=== PATIENT | female | born 1965 | race Asian ===

== ENCOUNTER 2016-11-26 10:29 | Emergency (ER) | payer OTHER ==
[~2016-11-26] VITALS: Ht 162.6 cm; Wt 135.2 kg
[2016-11-26 11:09] LABS: PLATELET COUNT 254 K/uL (152-353)
[2016-11-26] MEDS ORDERED: PENICILLN VK500 MG OR (11:54)
[2016-11-26 12:10] VITALS: BP 162/88; TEMP 98.4
== END 2016-11-26 12:10 | disposition home or self-care (01) ==
LOC: ED 10:29
DX: J02.0 Streptococcal pharyngitis (principal)
CPT/HCPCS: 85027; 87804; 87880; 96372; 99283; J0696

== ENCOUNTER 2018-06-01 17:46 | Outpatient (CLI) | payer OTHER ==
[~2018-06-01 17:46] MED LIST: PENICILLN VK500 MG OR
== END 2018-06-01 20:12 | disposition home or self-care (01) ==
LOC: LABW 17:46
DX: B35.1 Tinea unguium (principal)
CPT/HCPCS: 36415; 84450; 84460

== ENCOUNTER 2018-07-14 17:39 | Outpatient (CLI) | payer OTHER ==
[2018-07-14 18:30] LABS: PLATELET COUNT 272 K/uL (152-353)
[2018-07-14 18:41] LABS: POTASSIUM 3.6 mmol/L (3.6-5.2)
== END 2018-07-14 23:25 | disposition home or self-care (01) ==
LOC: LABW 17:39
PROVIDERS: Internal Medicine Nephrology
DX: E11.65 Type 2 diabetes mellitus with hyperglycemia (principal); E66.9 Obesity, unspecified; I13.11 Hypertensive heart and chronic kidney disease without heart failure, with stage 5 chronic kidney disease, or end stage renal disease; R82.99 Other abnormal findings in urine
CPT/HCPCS: 36415; 80053; 81000; 85027; 87077; 87086; 87088; 87186

== ENCOUNTER 2018-07-28 16:19 | Outpatient (CLI) | payer OTHER ==
[2018-07-28 17:07] LABS: POTASSIUM 4.1 mmol/L (3.6-5.2)
== END 2018-07-28 23:35 | disposition home or self-care (01) ==
LOC: LABW 16:19
PROVIDERS: Internal Medicine Nephrology
DX: N18.4 Chronic kidney disease, stage 4 (severe) (principal)
CPT/HCPCS: 36415; 80053; 80061; 82306; 82570; 83516; 83970; 84100; 84155; 84165; 86039; 86160; 86255; 86317; 86706; 86803

== ENCOUNTER 2018-09-23 13:18 | Outpatient (CLI) | payer OTHER ==
[2018-09-23 13:49] LABS: POTASSIUM 4.4 mmol/L (3.6-5.2)
[2018-09-23] MEDS ORDERED: HYDR25TA60 PO (16:30)
[2018-09-23] MEDS ORDERED: GABA400C2 PO (16:30)
[2018-09-23] MEDS ORDERED: CARV6.25 PO (16:31)
[2018-09-23] MEDS ORDERED: PRAVACHOL20 MG PO (16:31)
[2018-09-23] MEDS ORDERED: KLOR-CON M2020 MEQ PO (16:31)
[2018-09-23] MEDS ORDERED: LIPITOR20 MG PO (16:32)
[2018-09-23] MEDS ORDERED: FURO40TA93 PO (16:33)
[2018-09-23] MEDS ORDERED: GLIP10TA55 PO (16:33)
[2018-09-23] MEDS ORDERED: AMLO2.5T PO (16:33)
[2018-09-23] MEDS ORDERED: CITALOPRAM40 M1 PO (16:34)
[2018-09-23] MEDS ORDERED: ZESTRIL40 MG PO (16:34)
[2018-09-23] MEDS ORDERED: EC-81 ASPIRIN81 MG PO (16:35)
== END 2018-09-23 22:27 | disposition home or self-care (01) ==
LOC: LABW 13:18
PROVIDERS: Internal Medicine Nephrology
DX: N18.4 Chronic kidney disease, stage 4 (severe) (principal); E78.2 Mixed hyperlipidemia; E55.9 Vitamin D deficiency, unspecified
CPT/HCPCS: 36415; 80053; 80061; 82306; 82550; 83735; 86039

== ENCOUNTER 2018-09-23 16:10 | Emergency (ER) | payer OTHER ==
[~2018-09-23] VITALS: Ht 162.6 cm; Wt 131.1 kg
[2018-09-23] MEDS ORDERED: HYDR25TA60 PO (16:30)
[2018-09-23] MEDS ORDERED: GABA400C2 PO (16:30)
[2018-09-23] MEDS ORDERED: CARV6.25 PO (16:31)
[2018-09-23] MEDS ORDERED: PRAVACHOL20 MG PO (16:31)
[2018-09-23] MEDS ORDERED: KLOR-CON M2020 MEQ PO (16:31)
[2018-09-23] MEDS ORDERED: LIPITOR20 MG PO (16:32)
[2018-09-23] MEDS ORDERED: FURO40TA93 PO (16:33)
[2018-09-23] MEDS ORDERED: AMLO2.5T PO (16:33)
[2018-09-23] MEDS ORDERED: GLIP10TA55 PO (16:33)
[2018-09-23] MEDS ORDERED: ZESTRIL40 MG PO (16:34)
[2018-09-23] MEDS ORDERED: CITALOPRAM40 M1 PO (16:34)
[2018-09-23] MEDS ORDERED: EC-81 ASPIRIN81 MG PO (16:35)
[2018-09-23 17:05] LABS: PLATELET COUNT 251 K/uL (152-353)
[2018-09-23 17:15] LABS: POTASSIUM 3.9 mmol/L (3.6-5.2)
[2018-09-23 21:20] VITALS: BP 133/87; TEMP 97.3
== END 2018-09-23 21:22 | disposition home or self-care (01) ==
LOC: ED 16:10
PROVIDERS: Family Medicine
DX: E11.65 Type 2 diabetes mellitus with hyperglycemia (principal); N18.9 Chronic kidney disease, unspecified
CPT/HCPCS: 36415; 80053; 81000; 85027; 96360; 96372; 96375; 99284; J1815

== ENCOUNTER 2018-09-24 15:45 | Outpatient (CLI) | payer OTHER ==
[~2018-09-24 15:45] MED LIST changes: +AMLO2.5T PO; +CARV6.25 PO; +CITALOPRAM40 M1 PO; +EC-81 ASPIRIN81 MG PO; +FURO40TA93 PO; +GABA400C2 PO; +GLIP10TA55 PO; +HYDR25TA60 PO; +KLOR-CON M2020 MEQ PO; +LIPITOR20 MG PO; +PRAVACHOL20 MG PO; +ZESTRIL40 MG PO
== END 2018-09-24 19:38 | disposition home or self-care (01) ==
LOC: LABW 15:45
DX: N18.4 Chronic kidney disease, stage 4 (severe) (principal)
CPT/HCPCS: 82570; 84156

== ENCOUNTER 2018-11-25 13:45 | Outpatient (CLI) | payer OTHER ==
[2018-11-25 14:02] LABS: PLATELET COUNT 293 K/uL (152-353)
[2018-11-25 14:10] LABS: POTASSIUM 4.7 mmol/L (3.6-5.2)
== END 2018-11-25 21:13 | disposition home or self-care (01) ==
LOC: LABW 13:45
PROVIDERS: Internal Medicine Nephrology
DX: N18.4 Chronic kidney disease, stage 4 (severe) (principal); E78.2 Mixed hyperlipidemia; E11.65 Type 2 diabetes mellitus with hyperglycemia
CPT/HCPCS: 36415; 80053; 80061; 82306; 82550; 85027

== ENCOUNTER 2019-01-26 11:41 | Outpatient (CLI) | payer OTHER ==
[2019-01-26 13:04] LABS: POTASSIUM 4.8 mmol/L (3.6-5.2)
== END 2019-01-26 20:32 | disposition home or self-care (01) ==
LOC: LABW 11:41
PROVIDERS: Internal Medicine Nephrology
DX: N18.4 Chronic kidney disease, stage 4 (severe) (principal); E78.2 Mixed hyperlipidemia
CPT/HCPCS: 36415; 80053; 80061; 82550

== ENCOUNTER → 2019-02-11 01:43 | Outpatient (CLI) | payer OTHER | END | disposition home or self-care (01) | LOC: AMB 01:43 | DX: R41.82 Altered mental status, unspecified (principal); E16.2 Hypoglycemia, unspecified; R53.83 Other fatigue ==

== ENCOUNTER 2019-02-11 13:45 | Outpatient (CLI) | payer OTHER | END 2019-02-11 13:52 | disposition short-term general hospital (02) | LOC: AMB 13:45 | DX: E16.2 Hypoglycemia, unspecified (principal) | CPT/HCPCS: A0425; A0427 ==

== ENCOUNTER 2019-02-11 13:58 | Emergency (ER) | payer OTHER ==
[~2019-02-11] VITALS: Ht 162.6 cm; Wt 138.8 kg
[2019-02-11 13:59] VITALS: TEMP 97.5
[2019-02-11 14:49] LABS: PLATELET COUNT 295 K/uL (152-353)
[2019-02-11 15:16] LABS: POTASSIUM 4.1 mmol/L (3.6-5.2)
[2019-02-11 18:22] VITALS: BP 165/91
== END 2019-02-11 18:25 | disposition home or self-care (01) ==
LOC: ED 13:58
PROVIDERS: Emergency Medicine
DX: E11.649 Type 2 diabetes mellitus with hypoglycemia without coma (principal)
CPT/HCPCS: 36415; 80053; 82962; 85027; 99283; J7060

== ENCOUNTER 2019-04-10 12:40 | Outpatient (CLI) | payer OTHER ==
[2019-04-10 13:05] LABS: PLATELET COUNT 306 K/uL (152-353)
[2019-04-10 13:16] LABS: POTASSIUM 4.3 mmol/L (3.6-5.2)
== END 2019-04-10 21:42 | disposition home or self-care (01) ==
LOC: LABW 12:40
PROVIDERS: Internal Medicine Nephrology
DX: N18.4 Chronic kidney disease, stage 4 (severe) (principal); E11.29 Type 2 diabetes mellitus with other diabetic kidney complication; E78.2 Mixed hyperlipidemia
CPT/HCPCS: 36415; 80048; 82306; 82570; 83036; 83970; 84100; 84155; 85027

== ENCOUNTER 2019-06-15 15:52 | Outpatient (CLI) | payer OTHER ==
[2019-06-15 16:14] LABS: PLATELET COUNT 253 K/uL (152-353)
[2019-06-15 16:17] LABS: POTASSIUM 4.6 mmol/L (3.6-5.2)
== END 2019-06-15 20:41 | disposition home or self-care (01) ==
LOC: LABW 15:52
PROVIDERS: Internal Medicine Nephrology
DX: N18.5 Chronic kidney disease, stage 5 (principal); D64.9 Anemia, unspecified; D55.9 Anemia due to enzyme disorder, unspecified; N25.81 Secondary hyperparathyroidism of renal origin
CPT/HCPCS: 36415; 80048; 82040; 82306; 83970; 84100; 85027

== ENCOUNTER 2019-07-14 13:01 | Outpatient (CLI) | payer OTHER ==
[2019-07-14 13:23] LABS: PLATELET COUNT 251 K/uL (152-353)
[2019-07-14 13:26] LABS: POTASSIUM 4.3 mmol/L (3.6-5.2)
== END 2019-07-14 20:19 | disposition home or self-care (01) ==
LOC: LABW 13:01
PROVIDERS: Internal Medicine Nephrology
DX: N18.5 Chronic kidney disease, stage 5 (principal); D63.1 Anemia in chronic kidney disease
CPT/HCPCS: 36415; 80048; 82040; 84100; 85027

== ENCOUNTER 2019-09-21 15:02 | Outpatient (CLI) | payer OTHER ==
[2019-09-21 15:36] LABS: PLATELET COUNT 232 K/uL (152-353)
== END 2019-09-21 21:11 | disposition home or self-care (01) ==
LOC: LABW 15:02
PROVIDERS: Internal Medicine Nephrology
DX: N18.5 Chronic kidney disease, stage 5 (principal); D63.1 Anemia in chronic kidney disease
CPT/HCPCS: 36415; 80048; 82040; 84100; 85027

== ENCOUNTER → 2019-09-30 20:38 | Outpatient (CLI) | payer OTHER ==
[~2019-09-30 20:38] MED LIST changes: +DOCU100C10 PO; +GENERLAC10 GM/15 M PO; +VITAMIN D50000 UNIT PO
== END | disposition home or self-care (01) ==
LOC: AMB 20:38
DX: E16.2 Hypoglycemia, unspecified (principal)

== ENCOUNTER 2019-10-02 09:55 | Outpatient (CLI) | payer OTHER ==
[~2019-10-02 09:55] MED LIST changes: -DOCU100C10 PO; -GENERLAC10 GM/15 M PO; -VITAMIN D50000 UNIT PO
== END 2019-10-02 10:00 | disposition short-term general hospital (02) ==
LOC: AMB 09:55
DX: E16.2 Hypoglycemia, unspecified (principal)
CPT/HCPCS: A0425; A0427

== ENCOUNTER 2019-10-02 10:02 | Emergency (ER) | payer OTHER ==
[~2019-10-02] VITALS: Ht 162.6 cm; Wt 138.8 kg
[2019-10-02 10:42] LABS: PLATELET COUNT 295 K/uL (152-353)
[2019-10-02 11:08] LABS: POTASSIUM 4.8 mmol/L (3.6-5.2)
[2019-10-02 19:00] VITALS: BP 209/92; TEMP 98.2
== END 2019-10-02 19:00 | disposition short-term general hospital (02) ==
LOC: ED 10:02
PROVIDERS: Family Medicine
PROC: 0T9B70Z Drainage of Bladder with Drainage Device, Via Natural or Artificial Opening (ICD-10-PCS; principal; 2019-10-02)
DX: E11.649 Type 2 diabetes mellitus with hypoglycemia without coma (principal); N18.6 End stage renal disease; R94.31 Abnormal electrocardiogram [ECG] [EKG]
CPT/HCPCS: 36415; 36600; 51702; 80053; 82140; 82550; 82553; 82805; 82962; 83605; 83735; 83880; 84484; 85027; 87040; 93005; 96372; 96374; 96375; 99284; J0360; J1610; J1940; J7060

== ENCOUNTER 2019-10-18 22:55 | Outpatient (CLI) | payer OTHER ==
[2019-10-18] MEDS ORDERED: VITAMIN D50000 UNIT PO (23:22)
[2019-10-18] MEDS ORDERED: GENERLAC10 GM/15 M PO (23:25)
[2019-10-18] MEDS ORDERED: DOCU100C10 PO (23:26)
== END 2019-10-18 23:00 | disposition short-term general hospital (02) ==
LOC: AMB 22:55
DX: E11.649 Type 2 diabetes mellitus with hypoglycemia without coma (principal)
CPT/HCPCS: A0425; A0427

== ENCOUNTER 2019-10-18 23:11 | Emergency (ER) | payer OTHER ==
[~2019-10-18] VITALS: Ht 162.6 cm; Wt 138.8 kg
[2019-10-18] MEDS ORDERED: VITAMIN D50000 UNIT PO (23:22)
[2019-10-18] MEDS ORDERED: GENERLAC10 GM/15 M PO (23:25)
[2019-10-18 23:26] LABS: PLATELET COUNT 248 K/uL (152-353)
[2019-10-18] MEDS ORDERED: DOCU100C10 PO (23:26)
[2019-10-18 23:55] LABS: POTASSIUM 4.7 mmol/L (3.6-5.2)
[2019-10-19 02:27] VITALS: BP 124/52; TEMP 97.7
== END 2019-10-19 02:28 | disposition home or self-care (01) ==
LOC: ED 23:11
PROVIDERS: Hospitalist
DX: E11.649 Type 2 diabetes mellitus with hypoglycemia without coma (principal); N18.6 End stage renal disease; Z99.2 Dependence on renal dialysis
CPT/HCPCS: 80053; 82947; 82962; 85027; 96374; 99284; J7060

== ENCOUNTER 2020-05-13 13:59 | Outpatient (CLI) | payer OTHER ==
[~2020-05-13 13:59] MED LIST changes: +DOCU100C10 PO; +GENERLAC10 GM/15 M PO; +VITAMIN D50000 UNIT PO
== END 2020-05-13 19:02 | disposition home or self-care (01) ==
LOC: RAD 13:59
DX: R68.89 Other general symptoms and signs (principal)

== ENCOUNTER 2020-05-26 16:38 | Emergency (ER) | payer OTHER ==
[~2020-05-26] VITALS: Ht 162.6 cm; Wt 137.4 kg
[2020-05-26 16:40] VITALS: TEMP 98.5
[2020-05-26 17:15] LABS: PLATELET COUNT 216 K/uL (152-353)
[2020-05-26 17:28] LABS: POTASSIUM 7.1 mmol/L (3.6-5.2)
[2020-05-26 18:13] VITALS: BP 172/88
== END 2020-05-26 18:36 | disposition home or self-care (01) ==
LOC: ED 16:38
PROVIDERS: Hospitalist
DX: N18.6 End stage renal disease (principal); Z99.2 Dependence on renal dialysis; M54.5 Low back pain
CPT/HCPCS: 80048; 81000; 85027; 96372; 99283; J1885

== ENCOUNTER 2020-10-07 12:27 | Emergency (ER) | payer OTHER ==
[~2020-10-07] VITALS: Ht 162.6 cm; Wt 135.2 kg
[2020-10-07 12:47] VITALS: TEMP 98.5
[2020-10-07 14:27] LABS: PLATELET COUNT 345 K/uL (152-353)
[2020-10-07 15:11] LABS: POTASSIUM 2.4 mmol/L (3.6-5.2)
[2020-10-07 19:36] VITALS: BP 158/73
== END 2020-10-07 19:37 | disposition home or self-care (01) ==
LOC: ED 12:27
PROVIDERS: Family Medicine
DX: N39.0 Urinary tract infection, site not specified (principal); E87.6 Hypokalemia; E11.65 Type 2 diabetes mellitus with hyperglycemia; N18.6 End stage renal disease; Z99.2 Dependence on renal dialysis; Z03.818 Encounter for observation for suspected exposure to other biological agents ruled out
CPT/HCPCS: 80053; 81000; 82150; 82728; 82947; 83690; 85027; 85379; 87086; 87088; 87635; 96372; 99283; J0696; J1815; U0003

== ENCOUNTER 2020-10-25 13:15 | Outpatient (CLI) | payer OTHER | END 2020-10-25 18:51 | disposition home or self-care (01) | LOC: RAD 13:15 | PROVIDERS: ATTEND Internal Medicine Nephrology | DX: R10.9 Unspecified abdominal pain (principal); M54.5 Low back pain; N18.5 Chronic kidney disease, stage 5 ==

== ENCOUNTER 2020-11-04 23:59 | Emergency (ER) | payer OTHER ==
[~2020-11-04] VITALS: Ht 162.6 cm; Wt 127.0 kg
[2020-11-05 01:37] LABS: PLATELET COUNT 441 K/uL (152-353)
[2020-11-05 01:52] LABS: POTASSIUM 2.3 mmol/L (3.6-5.2)
[2020-11-05 03:29] VITALS: BP 130/79; TEMP 98.7
== END 2020-11-05 03:30 | disposition home or self-care (01) ==
LOC: ED 23:59
PROVIDERS: Family Medicine
DX: E87.6 Hypokalemia (principal); K59.09 Other constipation; N18.6 End stage renal disease; Z94.0 Kidney transplant status
CPT/HCPCS: 80053; 81000; 85027; 96372; 99283; J1885

== ENCOUNTER 2020-11-21 09:52 | Emergency (ER) | payer OTHER ==
[~2020-11-21] VITALS: Ht 162.6 cm; Wt 127.0 kg
[2020-11-21 09:52] VITALS: TEMP 98.3
[2020-11-21 10:50] LABS: PLATELET COUNT 321 K/uL (152-353)
[2020-11-21 11:19] LABS: POTASSIUM 3.2 mmol/L (3.6-5.2)
[2020-11-21 13:18] VITALS: BP 138/75
== END 2020-11-21 13:18 | disposition home or self-care (01) ==
LOC: ED 09:55
PROVIDERS: Emergency Medicine Emergency Medical Services
DX: J32.0 Chronic maxillary sinusitis (principal); G57.83 Other specified mononeuropathies of bilateral lower limbs; R53.1 Weakness; Z03.818 Encounter for observation for suspected exposure to other biological agents ruled out
CPT/HCPCS: 80053; 83735; 84484; 85027; 87635; 93005; 99283; U0003

== ENCOUNTER 2021-01-01 18:25 | Emergency (ER) | payer OTHER ==
[~2021-01-01] VITALS: Ht 162.6 cm; Wt 127.0 kg
[2021-01-01 19:06] LABS: PLATELET COUNT 255 K/uL (152-353)
[2021-01-01 20:06] LABS: PARTIAL THROMBOPLASTIN TIME 22.3 SECONDS (24.5-33.6)
[2021-01-01 21:15] VITALS: BP 138/54; TEMP 98.3
== END 2021-01-01 21:15 | disposition home or self-care (01) ==
LOC: ED 18:25
PROVIDERS: Hospitalist
DX: N18.6 End stage renal disease (principal); Z99.2 Dependence on renal dialysis; R19.7 Diarrhea, unspecified; K52.89 Other specified noninfective gastroenteritis and colitis; R06.02 Shortness of breath; Z20.828 Contact with and (suspected) exposure to other viral communicable diseases
CPT/HCPCS: 36415; 80053; 82550; 83605; 83880; 84484; 85027; 85610; 85730; 87635; 93005; 96360; 96365; 96375; 99284; J2405; J3490; U0003

== ENCOUNTER 2021-02-01 15:29 | Outpatient (CLI) | payer OTHER | END 2021-02-01 23:04 | disposition home or self-care (01) | LOC: INF 15:29 | PROVIDERS: ATTEND Internal Medicine | DX: Z23 Encounter for immunization (principal) | CPT/HCPCS: 96372 ==

== ENCOUNTER 2021-02-23 15:12 | Outpatient (CLI) | payer OTHER | END 2021-02-23 19:58 | disposition home or self-care (01) | LOC: INF 15:12 | PROVIDERS: ATTEND Internal Medicine | DX: Z23 Encounter for immunization (principal) | CPT/HCPCS: 96372 ==

== ENCOUNTER 2021-04-09 16:02 | Emergency (ER) | payer OTHER ==
[~2021-04-09] VITALS: Ht 162.6 cm; Wt 127.0 kg
[2021-04-09 16:04] VITALS: TEMP 98.4
[2021-04-09 16:33] LABS: PLATELET COUNT 257 K/uL (152-353)
[2021-04-09 16:49] LABS: POTASSIUM 3.5 mmol/L (3.6-5.2)
[2021-04-09 16:51] LABS: PARTIAL THROMBOPLASTIN TIME 21.6 SECONDS (24.5-33.6)
[2021-04-09 17:25] VITALS: BP 138/73
== END 2021-04-09 17:31 | disposition home or self-care (01) ==
LOC: ED 16:02
PROVIDERS: Hospitalist
DX: N18.6 End stage renal disease (principal); Z99.2 Dependence on renal dialysis; R19.7 Diarrhea, unspecified
CPT/HCPCS: 80053; 80320; 82550; 83880; 84484; 85027; 85610; 85730; 87635; 93005; 96360; 99284; U0003

== ENCOUNTER 2021-04-13 12:40 | Emergency (ER) | payer OTHER ==
[~2021-04-13] VITALS: Ht 162.6 cm; Wt 127.0 kg
[2021-04-13 12:45] VITALS: TEMP 97.8
[2021-04-13 14:16] VITALS: BP 136/82
== END 2021-04-13 14:17 | disposition home or self-care (01) ==
LOC: ED 12:40
DX: S09.8XXA Other specified injuries of head, initial encounter (principal); R22.0 Localized swelling, mass and lump, head; S00.03XA Contusion of scalp, initial encounter; W01.198A Fall on same level from slipping, tripping and stumbling with subsequent striking against other object, initial encounter; Y92.531 Health care provider office as the place of occurrence of the external cause
CPT/HCPCS: 96372; 99283; J1885

== ENCOUNTER 2021-04-18 15:44 | Emergency (ER) | payer OTHER ==
[~2021-04-18] VITALS: Ht 162.6 cm; Wt 127.0 kg
[2021-04-18 15:50] VITALS: TEMP 98.63
[2021-04-18 17:35] VITALS: BP 118/70
== END 2021-04-18 17:35 | disposition home or self-care (01) ==
LOC: ED 15:44
DX: S30.0XXD Contusion of lower back and pelvis, subsequent encounter (principal); M51.36 Other intervertebral disc degeneration, lumbar region; Z91.81 History of falling; Y92.89 Other specified places as the place of occurrence of the external cause
CPT/HCPCS: 99283

== ENCOUNTER 2022-03-23 09:56 | Outpatient (CLI) | payer OTHER | END 2022-03-23 18:55 | disposition home or self-care (01) | LOC: RESP 09:56 | PROVIDERS: ATTEND Internal Medicine | DX: Z01.818 Encounter for other preprocedural examination (principal); N18.6 End stage renal disease ==

== ENCOUNTER 2022-04-08 19:29 | Emergency (ER) | payer OTHER ==
[~2022-04-08] VITALS: Ht 170.2 cm; Wt 117.9 kg
[2022-04-08 20:21] LABS: PLATELET COUNT 246 K/uL (152-353)
[2022-04-08 20:52] LABS: PARTIAL THROMBOPLASTIN TIME 23.9 SECONDS (24.5-33.6)
[2022-04-08 21:25] VITALS: BP 132/81; TEMP 98.9
== END 2022-04-08 21:30 | disposition home or self-care (01) ==
LOC: ED 19:29
PROVIDERS: Hospitalist
DX: R51.9 Headache, unspecified (principal); N18.6 End stage renal disease; Z99.2 Dependence on renal dialysis; R11.2 Nausea with vomiting, unspecified; Z20.822 Contact with and (suspected) exposure to COVID-19; I50.9 Heart failure, unspecified
CPT/HCPCS: 36415; 80053; 82550; 83880; 84484; 85027; 85610; 85730; 87502; 87635; 93005; 96365; 96375; 99284; J0696; J2270; J2405; U0003

== ENCOUNTER 2023-04-01 12:05 | Emergency (ER) | payer OTHER ==
[~2023-04-01] VITALS: Ht 170.2 cm; Wt 127.0 kg
[2023-04-01 12:10] VITALS: TEMP 97
[2023-04-01 13:26] VITALS: BP 159/76
== END 2023-04-01 13:26 | disposition home or self-care (01) ==
LOC: ED 12:05
DX: R21 Rash and other nonspecific skin eruption (principal)
CPT/HCPCS: 99281

== ENCOUNTER 2023-05-21 12:53 | Emergency (ER) | payer OTHER ==
[~2023-05-21] VITALS: Ht 170.2 cm; Wt 127.0 kg
[2023-05-21 12:55] VITALS: TEMP 98.1
[2023-05-21 13:12] LABS: PLATELET COUNT 186 K/uL (152-353)
[2023-05-21 13:24] LABS: POTASSIUM 3.1 mmol/L (3.6-5.2)
[2023-05-21 13:37] LABS: PARTIAL THROMBOPLASTIN TIME 28.6 SECONDS (23.9-36.7)
[2023-05-21 14:56] VITALS: BP 145/99
== END 2023-05-21 14:50 | disposition still patient (30) ==
LOC: ED 12:53
PROVIDERS: Family Medicine
DX: I21.3 ST elevation (STEMI) myocardial infarction of unspecified site (principal); R07.9 Chest pain, unspecified; I10 Essential (primary) hypertension
CPT/HCPCS: 80053; 84484; 85027; 85610; 85730; 93005; 96361; 96365; 96375; 99285; J1644; J2405

== ENCOUNTER 2023-06-28 14:34 | Outpatient (CLI) | payer OTHER | END 2023-06-28 19:03 | disposition home or self-care (01) | LOC: US 14:34 | PROVIDERS: ATTEND Internal Medicine Cardiovascular Disease | DX: M79.601 Pain in right arm (principal) ==